=== PATIENT | female | born 1945 | race Asian ===

== ENCOUNTER 2016-05-29 07:08 | Emergency (ER) | payer MEDICARE, OTHER ==
[2016-05-29 07:18] VITALS: BP 164/81
--- NOTE | 2016-05-29 07:41 | ED Physician Documentation ---
PD HPI LOWER EXT INJURY - Stated complaint Stated Complaint: FT PX - Chief complaint Chief Complaint: Ext Problem - History obtained from History obtained from: Patient - History of Present Illness PD HPI LOW EXT INJURY LOCATION: Right, Foot (base) Type of injury: Other (she was walking more last week and initially thought her bunion was irritated, but pain has gotten significant). No: Fall, Twist Timing - onset: How many days ago (1-2 days of paina nd redness at base of great toe) Timing - duration: Days Timing - details: Gradual onset, Still present Worsened by: Moving, Palpating Associated symptoms: Swelling, Discolored (red). No: Weakness, Numbness Similar symptoms before: Has not had sx before Review of Systems Constitutional: denies: Fever, Chills Skin: denies: Abrasion (s), Laceration (s) Neurologic: denies: Focal weakness, Numbness PD PAST MEDICAL HISTORY - Past Medical History Cardiovascular: Hypertension, Atrial fibrillation Respiratory: Shortness of breath Endocrine/Autoimmune: Type 1 diabetes GI: GERD, Diverticulitis : None Psych: None Derm: None - Past Surgical History Past Surgical History: Yes General: Colonoscopy Ortho: Other - Present Medications Home Medications: Ambulatory Orders Medication Instructions Recorded Confirmed Atorvastatin Calcium 20 mg PO DAILY 11/18/15 05/29/16 Dabigatran Etexilate Mesylate 150 mg PO BID 11/18/15 05/29/16 [Pradaxa] Insulin Glargine,Hum.rec.anlog 18 units SQ DAILY PM 11/18/15 05/29/16 [Lantus] Liraglutide [Victoza 2-Jones] 18 units SQ DAILY 11/18/15 05/29/16 diltiaZEM [Cardizem] 190 mg PO DAILY 11/18/15 05/29/16 Losartan [Cozaar] 100 mg PO DAILY 01/10/16 05/29/16 metFORMIN [Glucophage] 500 mg PO BIDWM 01/10/16 05/29/16 Cetirizine [ZyrTEC] 1 tab PO .FREQ 01/18/16 05/29/16 Cephalexin [Keflex] 500 mg PO QID #24 capsule 05/29/16 Hydrocodone/Acetaminophen [Jackson 1 each PO Q6H PRN #20 tablet 05/29/16 5-325 Tablet] Naproxen [Naprosyn] 500 mg PO BID #15 tablet 05/29/16 - Allergies Allergies/Adverse Reactions: Allergies Allergy/AdvReac Type Severity Reaction Status Date / Time No Known Drug Allergies Allergy Verified 05/29/16 07:18 - Social History Does the pt smoke?: No Smoking Status: Current every day smoker Does the pt drink ETOH?: No Does the pt have substance abuse?: No - Immunizations Immunizations are current?: Yes - POLST Patient has POLST: No PD ED PE NORMAL - Vitals Vital signs reviewed: Yes - General General: Alert and oriented X 3, Well developed/nourished - Derm Derm: Warm and dry, Other (1st MT dorsal and medial with redness and marked tenderness. Slight red streak proximal to the ) - Extremities Extremities: Other (tender at base of great toe) - Neuro Neuro: No motor deficit, No sensory deficit Results - Vitals Vitals: Vital Signs - 24 hr 05/29/16 05/29/16 07:14 07:19 Temperature 36.6 C Heart Rate 77 Respiratory 16 Rate Blood Pressure 164/81 H O2 Saturation 97 Oxygen O2 Source Room air PD MEDICAL DECISION MAKING - ED course Complexity details: considered differential (seems most likely gout and there is not enough swelling/effusion of the joint to predict being able to get fluid out. However there is a hint of a red streak going to dorsum of foot, concerning for infection instead. No skin breaks nor lesions as intro site, but still will cover for infection too for now. Unfortunately she is on blood thinner and also is diabetic. ), d/w patient, d/w family () Departure - Departure Disposition: 01 Home, Self Care Clinical Impression: Great toe pain Qualifiers: Laterality: right Qualified Code(s): M79.674 - Pain in right toe(s) Condition: Stable Record reviewed to determine appropriate education?: Yes Instructions: ED Arthritis Gout, ED Infec Skin Cellulitis Follow-Up: Arcadio Hou MD [Primary Care Provider] - Prescriptions: Cephalexin [Keflex] 500 mg PO QID #24 capsule Naproxen [Naprosyn] 500 mg PO BID #15 tablet Hydrocodone/Acetaminophen [Jackson 5-325 Tablet] 1 each PO Q6H PRN #20 tablet PRN Reason: Pain Comments: This looks like gout, so an ANti-inflammatory with help with this, and we will interfere with your conditions/medications either way we go: NSAIDs will interfere with the blood thinner and steroids will interfere with your diabetes. So trying a little of each. Short term use of an NSAID will be okay with the blood thinner and some use of steroid will bump your sugars for couple of days. Also use Tylenol or hydrocodone for pain as needed. Keflex as directed due to concern for infection instead. Discharge Date/Time: 05/29/16 08:23
[2016-05-29] MEDS ORDERED: HYDROcod/ACETAM 5/325 MG TABLET ONE (08:02)
[2016-05-29] MEDS ORDERED: NAPROXEN 250 MG TABLET PO ONE (08:03)
[2016-05-29] MEDS ORDERED: DEXAMETHASONE 10 MG/ML VIAL ONE (08:03)
[2016-05-29] MEDS ORDERED: CEPHALEXIN 250 MG CAPSULE PO ONE (08:03)
[2016-05-29] MEDS ORDERED: CHERRY SYRUP 10 ML UDC PO ONE (08:03)
[2016-05-29] MEDS: DEXAMETHASONE 10 MG/ML VIAL PO STA (08:08)
[2016-05-29] MEDS: NAPROXEN 250 MG TABLET PO STA (08:08)
[2016-05-29] MEDS: HYDROcod/ACETAM 5/325 MG TABLET PO STA (08:09)
[2016-05-29] MEDS: CEPHALEXIN 250 MG CAPSULE PO STA (08:09)
== END 2016-05-29 08:23 | disposition home or self-care (01) ==
LOC: ED 07:08
DX: M79.674 Pain in right toe(s) (principal); I10 Essential (primary) hypertension; I48.91 Unspecified atrial fibrillation; E10.9 Type 1 diabetes mellitus without complications; Z79.4 Long term (current) use of insulin; K21.9 Gastro-esophageal reflux disease without esophagitis; F17.200 Nicotine dependence, unspecified, uncomplicated
CPT/HCPCS: 99283

== ENCOUNTER 2016-08-28 11:07 | Outpatient (CLI) | payer MEDICARE, OTHER ==
--- NOTE | 2016-08-30 16:55 | Mammography Report ---
DIGITAL SCREENING MAMMOGRAM: 08/28/2016 CLINICAL INDICATION: A 71-year-old, for screening. COMPARISON: 08/2006. TECHNIQUE: Routine CC and MLO projections were obtained of the breasts. FINDINGS: The breasts again demonstrate scattered fibroglandular densities bilaterally. Asymmetric p arenchyma in the right upper inner quadrant is stable. No suspicious masses, clustered microcalcifica tions, or regions of architectural distortion are identified. IMPRESSION: BENIGN FINDINGS. RECOMMENDATION: ROUTINE ANNUAL SCREENING UNLESS OTHERWISE CLINICALLY INDICATED. BIRADS CATEGORY 2-BENIGN FINDINGS. STANDARD QUALIFYING STATEMENTS 1. This examination was reviewed with the aid of Computer-Aided Detection (CAD). 2. A negative or benign imaging report should not delay biopsy if clinically suspicious findings are present. Consider surgical consultation if warranted. More than 5% of cancers are not identified by i maging. 3. Dense breasts may obscure an underlying neoplasm. JOB #: [id number] EXT JOB #:[id number]
== END 2016-08-28 11:08 | disposition home or self-care (01) ==
LOC: DI 11:07
PROVIDERS: ATTEND Family Medicine
DX: Z12.31 Encounter for screening mammogram for malignant neoplasm of breast (principal)
CPT/HCPCS: 77067

== ENCOUNTER 2018-01-25 08:50 | Outpatient (CLI) | payer MEDICARE, OTHER | END 2018-01-25 08:51 | disposition home or self-care (01) | LOC: NS 08:50 | PROVIDERS: ATTEND Family Medicine | DX: Z71.3 Dietary counseling and surveillance (principal); E11.9 Type 2 diabetes mellitus without complications; E78.5 Hyperlipidemia, unspecified; I10 Essential (primary) hypertension | CPT/HCPCS: 97802 ==

== ENCOUNTER 2018-03-16 11:59 | Emergency (ER) | payer MEDICARE, OTHER ==
[2018-03-16 12:06] VITALS: BP 151/88
--- NOTE | 2018-03-16 13:04 | ED Physician Documentation ---
PD HPI HEENT - Stated complaint Stated Complaint: TOOTH PX - Chief complaint Chief Complaint: Heent - History obtained from History obtained from: Patient - History of Present Illness Timing - onset: How many days ago (2-3) Timing - duration: Days (2-3) Timing - details: Gradual onset, Still present Location: Tooth (left upper) Associated symptoms: Facial swelling. No: Fever, Unable to swallow, Swollen nodes Similar symptoms before: Has not had sx before Recently seen: Not recently seen Review of Systems Constitutional: denies: Fever, Chills, Myalgias Nose: denies: Rhinorrhea / runny nose, Congestion Throat: reports: Dental pain / toothache. denies: Sore throat Respiratory: denies: Cough PD PAST MEDICAL HISTORY - Past Medical History Cardiovascular: Hypertension, Atrial fibrillation Respiratory: Shortness of breath Endocrine/Autoimmune: Type 1 diabetes GI: GERD, Diverticulitis : None Psych: None Derm: None - Past Surgical History Past Surgical History: Yes General: Colonoscopy Ortho: Other - Present Medications Home Medications: Ambulatory Orders Medication Instructions Recorded Confirmed Dabigatran Etexilate Mesylate 150 mg PO BID 11/18/15 03/16/18 [Pradaxa] Insulin Glargine,Hum.rec.anlog 18 units SQ DAILY PM 11/18/15 03/16/18 [Lantus] RX: diltiaZEM [Cardizem] 190 mg PO DAILY 11/18/15 03/16/18 Losartan [Cozaar] 100 mg PO DAILY 01/10/16 03/16/18 metFORMIN [Glucophage] 500 mg PO BIDWM 01/10/16 03/16/18 Cetirizine [ZyrTEC] 1 tab PO .FREQ 01/18/16 03/16/18 Cephalexin [Keflex] 500 mg PO Q6H #28 capsule 03/16/18 Chlorhexidine Gluconate [Peridex] 5 ml PO TID #118 mouthwash 03/16/18 - Allergies Allergies/Adverse Reactions: Allergies Allergy/AdvReac Type Severity Reaction Status Date / Time No Known Drug Allergies Allergy Verified 03/16/18 12:06 - Social History Does the pt smoke?: No Smoking Status: Never smoker Does the pt drink ETOH?: No Does the pt have substance abuse?: No - Immunizations Immunizations are current?: Yes - POLST Patient has POLST: No PD ED PE NORMAL - Vitals Vital signs reviewed: Yes - General General: Alert and oriented X 3, No acute distress, Well developed/nourished, Other (left cheek/facial mild swelling, slight warmth. Minimally red. ) - HEENT HEENT: EOMI (without pain), Ears normal, Moist mucous membranes, Pharynx benign. No: Dentition benign (cavity/eroded tooth left upper with swelling of the gum. No noted fluctuance. There is swelling without induration of the left cheek. No sinus tenderness to percussion. ) - Neck Neck: Supple, no meningeal sign, No adenopathy - Cardiac Cardiac: RRR, No murmur - Respiratory Respiratory: Clear bilaterally - Derm Derm: Normal color, Warm and dry Results - Vitals Vitals: Vital Signs - 24 hr 03/16/18 12:04 Temperature 36.2 C L Heart Rate 81 Respiratory 14 Rate Blood Pressure 151/88 H O2 Saturation 98 Oxygen O2 Source Room air PD MEDICAL DECISION MAKING - ED course Complexity details: considered differential (tooth pain and gum swelling with some swelling left cheek, but no feeling of the abscess extended to there. ), d/w patient Departure - Departure Disposition: Home, Self Care Clinical Impression: Infected dental caries Condition: Stable Record reviewed to determine appropriate education?: Yes Instructions: ED Dental Abscess Facial Cellulitis Follow-Up: Gill Grissom MD [Primary Care Provider] - Prescriptions: Cephalexin [Keflex] 500 mg PO Q6H #28 capsule Chlorhexidine Gluconate [Peridex] 5 ml PO TID #118 mouthwash Comments: Drink lots of fluids. Use the antiseptic mouth rinse 3 times a day and particularly swishing around the area of the infection. Cephalexin antibiotic as directed for the next week. Call your dentist Sunday or Sunday for a follow-up appointment for more definitive care of the tooth. Recheck if not improving over the next few days. Tylenol if needed for pains. Discharge Date/Time: 03/16/18 13:53
[2018-03-16] MEDS ORDERED: ACETAMINOPHEN 325 MG TABLET PO STA (13:28)
[2018-03-16] MEDS ORDERED: cephALEXin 250 MG CAPSULE PO STA (13:28)
== END 2018-03-16 13:53 | disposition home or self-care (01) ==
LOC: ED 11:59
DX: K02.9 Dental caries, unspecified (principal); K04.7 Periapical abscess without sinus; I10 Essential (primary) hypertension; E10.9 Type 1 diabetes mellitus without complications
CPT/HCPCS: 99283; A9270

== ENCOUNTER 2018-08-15 11:33 | Outpatient (CLI) | payer MEDICARE, OTHER ==
--- NOTE | 2018-08-16 09:19 | XRAY Report ---
Reason: HAND PAIN,RIGHT Procedure Date: 08/15/2018 Accession Number: [id number] / [id number] Procedure: WCP - Hand 3 View RT CPT Code: FULL RESULT: EXAM: RIGHT HAND RADIOGRAPHY EXAM DATE: 08/15/2018 11:47 AM. CLINICAL HISTORY: Right hand pain. Third and fourth digit pain. No known injury. COMPARISON: None. TECHNIQUE: 3 views. FINDINGS: Bones: Normal. No fractures or bone lesions. Joints: Mild to moderate thumb IP joint degenerative disease. Mild degenerative disease evident involving other IP joints, greatest at the index finger DIP joint. No subluxations. Soft Tissues: Normal. No soft tissue swelling. IMPRESSION: 1. No acute abnormality. 2. Degenerative disease, as above. RADIA
== END 2018-08-15 11:34 | disposition home or self-care (01) ==
LOC: DI.WCP 11:33
PROVIDERS: ATTEND Family Medicine
DX: M19.041 Primary osteoarthritis, right hand (principal)

== ENCOUNTER 2019-01-31 08:59 | Outpatient (CLI) | payer MEDICARE, OTHER ==
--- NOTE | 2019-02-01 13:02 | XRAY Report ---
Reason: CHRONIC COUGH Procedure Date: 01/31/2019 Accession Number: [id number] / [id number] Procedure: WCP - Chest 2 View X-Ray CPT Code: 03777 Final Report FULL RESULT: EXAM: CHEST RADIOGRAPHY EXAM DATE: 01/31/2019 08:59 AM. CLINICAL HISTORY: Chronic dry cough. COMPARISON: ABDOMEN ACUTE 01/18/2016 2:59 PM. TECHNIQUE: 2 views. FINDINGS: Lungs/Pleura: No focal opacities evident. No pleural effusion. No pneumothorax. Normal volumes. Mediastinum: Large heart. Calcified aortic arch. Other: No fracture identified. IMPRESSION: Cardiomegaly without CHF or acute pulmonary abnormality. RADIA
== END 2019-01-31 23:59 | disposition home or self-care (01) ==
LOC: DI.WCP 08:59
PROVIDERS: ATTEND Family Medicine
DX: R05 Cough (principal); I51.7 Cardiomegaly
CPT/HCPCS: 71046

== ENCOUNTER 2019-02-28 07:37 | Outpatient (CLI) | payer MEDICARE, OTHER ==
--- NOTE | 2019-02-28 14:20 | Ultrasound Report ---
Reason: CLAUDICATION INTERMITTENT Procedure Date: 02/28/2019 Accession Number: [id number] / [id number] Procedure: US - Duplex Lwr Ext Arterial Bilat CPT Code: Final Report FULL RESULT: EXAM: BILATERAL LOWER EXTREMITY ARTERIAL DOPPLER ULTRASOUND EXAM DATE: 02/28/2019 09:07 AM. CLINICAL HISTORY: Claudication intermittent. COMPARISON: None. TECHNIQUE: Real-time sonographic vascular imaging was performed by the manager corporate strategy, utilizing color-flow, Doppler flow, and spectral analysis. Multiple inside sales account representative static images were saved for review. FINDINGS: Visually, grayscale images demonstrate diffuse atherosclerosis not occupying greater than 50% of the lumen in both right and left common femoral artery, right and left SFA bilaterally below the knee. Brisk arterial upstrokes are preserved by spectral Doppler throughout with patency by color Doppler in all sampled vessels with peak systolic velocities in centimeters per second and waveforms as described below. RIGHT: SAUSAGE INSPECTOR: 54.0 cm/sec. Biphasic waveform. SFA Proximal: 54.7 cm/sec. Biphasic waveform. SFA Mid: 51.9 cm/sec. Biphasic waveform. SFA Distal: 43.0 cm/sec. Biphasic waveform. PFA: 39.6 cm/sec, monophasic waveform. POP: 38.7 cm/sec. Biphasic waveform. LEAH: 34.7 cm/sec. Biphasic waveform. ENAMELER: 35.9 cm/sec. Biphasic Waveform. PER: 20.8 cm/sec. Biphasic Waveform. DPA: 31.2 cm/sec. Biphasic Waveform. LEFT: SAUSAGE INSPECTOR: 135.2 cm/sec. Biphasic waveform. SFA Proximal: 117.6 cm/sec. Biphasic waveform. SFA Mid: 87.1 cm/sec. Biphasic waveform. SFA Distal: 60.5 cm/sec. Biphasic waveform. PFA: 75.6 cm/sec. Biphasic Waveform. POP: 51.2 cm/sec. Biphasic waveform. LEAH: 67.4 cm/sec. Biphasic waveform. ENAMELER: 68.8 cm/sec. Biphasic waveform. PER: 39.2 Cm/sec. Biphasic Waveform. DPA: 49.2 cm/sec. Biphasic waveform. IMPRESSION: Diffuse atherosclerotic disease without suggestion of a focal high-grade stenosis or occlusion by ultrasound. RADIA
== END 2019-02-28 07:38 | disposition home or self-care (01) ==
LOC: DI 07:37
PROVIDERS: ATTEND Family Medicine
DX: I73.9 Peripheral vascular disease, unspecified (principal)
CPT/HCPCS: 93925

== ENCOUNTER 2020-02-05 10:01 | Outpatient (CLI) | payer MEDICARE, OTHER ==
--- NOTE | 2020-02-05 11:59 | XRAY Report ---
PROCEDURE: Lumbar Spine 2 View INDICATIONS: CHRONIC LOW BACK PAIN TECHNIQUE: 2 views of the lumbar spine were acquired. COMPARISON: CT of abdomen and pelvis dated 11/18/2015. FINDINGS: Bones: 5 [id number] vertebrae are present. There is normal bony alignment. Degenerative endpla te changes and bilateral facet arthrosis at L3-4 through L5-S1 levels are seen. No vertebral body com pression fractures. No suspicious bony lesions. Soft tissues: Overlying bowel gas pattern is normal. Vascular calcifications in the abdominal aorta and bilateral iliac arteries are seen. 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 No acute compression fracture or spon dylolisthesis. Reviewed by: Sami Avila MD on 02/05/2020 10:58 AM [facility] Approved by: Sami Avila MD on 02/05/2020 10:58 AM [facility] Station ID: [id number]
--- NOTE | 2020-02-05 12:03 | XRAY Report ---
PROCEDURE: Hip 1 View RT INDICATIONS: RIGHT HIP PAIN TECHNIQUE: 2 views of the hip were acquired. COMPARISON: None FINDINGS: Bones: No fractures or dislocations. No suspicious bony lesions. Mild bilateral hip joint osteoarth ritic changes are seen. No evidence of avascular necrosis of femoral head. The visualized pelvic ring appears intact. Soft tissues: No suspicious soft tissue calcifications or masses. IMPRESSION: No hip fracture or dislocation. Mild symmetric appearing bilateral hip joint osteoarthritis. No evide nce of avascular necrosis. Reviewed by: Sami Avila MD on 02/05/2020 11:02 AM [facility] Approved by: Sami Avila MD on 02/05/2020 11:02 AM [facility] Station ID: [id number]
== END 2020-02-05 23:59 | disposition home or self-care (01) ==
LOC: DI.WCP 10:01
PROVIDERS: ATTEND Physician Assistant Medical
DX: M47.816 Spondylosis without myelopathy or radiculopathy, lumbar region (principal); M16.0 Bilateral primary osteoarthritis of hip

== ENCOUNTER 2020-12-02 13:39 | Outpatient (CLI) | payer MEDICARE, OTHER ==
[2020-12-02 17:59] LABS: BASOPHILS # (AUTO) 0.1 10^3/uL (0.0-0.1); BASOPHILS % (AUTO) 1.2 %; EOSINOPHILS # (AUTO) 0.7 10^3/uL (0.0-0.7); EOSINOPHILS % (AUTO) 6.2 %; HGB - HEMOGLOBIN 15.5 g/dL (12.0-16.0); LYMPHOCYTES # (AUTO) 3.8 10^3/uL (1.5-3.5); LYMPHOCYTES % (AUTO) 36.6 %; MEAN CORPUSCULAR HEMOGLOBIN 30.1 pg (27.0-31.0); MEAN CORPUSCULAR HGB CONC 32.3 g/dL (32.0-36.0); MEAN CORPUSCULAR VOLUME 93.2 fL (81.0-99.0); MEAN PLATELET VOLUME 11.2 fL (7.9-10.8); MONOCYTES # (AUTO) 0.8 10^3/uL (0.0-1.0); MONOCYTES % (AUTO) 7.7 %; PLT - PLATELET COUNT 214 10^3/uL (130-450); RED BLOOD COUNT 5.15 10^6/uL (4.20-5.40); RED CELL DISTRIBUTION WIDTH 14.3 % (12.0-15.0); WHITE BLOOD COUNT 10.5 x10^3/uL (4.8-10.8)
[2020-12-02 18:23] LABS: ALBUMIN 4.2 g/dL (3.2-5.5); ALBUMIN/GLOBULIN RATIO 1.2 (1.0-2.2); ALKALINE PHOSPHATASE 68 IU/L (42-121); ALT ALANINE AMINOTRANSFERASE 17 IU/L (10-60); AST ASPARTATE AMINOTRANSFERASE 20 IU/L (10-42); BILIRUBIN,TOTAL 0.6 mg/dL (0.2-1.0); BUN - BLOOD UREA NITROGEN 22 mg/dL (6-20); CALCIUM 10.3 mg/dL (8.5-10.3); CARBON DIOXIDE - CO2 25 mmol/L (21-32); CHLORIDE 98 mmol/L (101-111); CHOL/HDL RATIO 2.4 (<4.4); CHOLESTEROL 121 mg/dL; CREATININE 0.6 mg/dL (0.4-1.0); GFR - MDRD 98 (>89); GLUCOSE 288 mg/dL (70-100); HDL CHOLESTEROL 50 mg/dL; LDL CHOLESTEROL,CALCULATED 39 mg/dL; LDL/HDL RATIO 0.8 (<4.4); POTASSIUM 4.2 mmol/L (3.5-5.0); SODIUM 136 mmol/L (135-145); TOTAL PROTEIN 7.8 g/dL (6.7-8.2); TRIGLYCERIDES 162 mg/dL; VLDL CHOLESTEROL 32 mg/dL
[2020-12-02 18:25] LABS: THYROID STIMULATING HORMONE 1.7 uIU/mL (0.34-5.60)
[2020-12-02 20:29] LABS: ESTIMATED AVERAGE GLUCOSE 275 mg/dL (70-100); HEMOGLOBIN A1c% 11.2 % (4.27-6.07)
== END 2020-12-02 23:59 | disposition home or self-care (01) ==
LOC: LAB.WCP 13:39
PROVIDERS: ATTEND Family Medicine
DX: E11.8 Type 2 diabetes mellitus with unspecified complications (principal)
CPT/HCPCS: 36415; 80053; 80061; 83036; 83721; 84443; 85025

== ENCOUNTER 2021-11-03 08:00 | Outpatient (CLI) | payer MEDICARE, OTHER ==
--- NOTE | 2021-11-04 08:05 | Mammography Report ---
BILATERAL DIGITAL SCREENING MAMMOGRAM 3D/2D: 11/03/2021 CLINICAL: Routine screening. Comparison is made to exam dated: 08/28/2016 mammogram - [facility]. There are scattered areas of fibroglandular density in both breasts (category b / 25%-50% glandular t issue). No significant masses, calcifications, or other findings are seen in either breast. There has been no significant interval change. IMPRESSION: NEGATIVE There is no mammographic evidence of malignancy. A 1 year screening mammogram is recommended. Based on the Tyrer Cuzick model (a risk assessment model) the patients lifetime risk is 2.6% and her 10 year risk is 2.4%. According to the ACR, ACS, and NCCN guidelines, an annual breast MRI exam evon g with mammogram is recommended if the patients lifetime risk is 20% or greater. This exam was interpreted at Station ID: [id number]. NOTE: For mammograms, a report in lay terms will be sent to the patient. Approximately 15% of breast malignancies will not be visualized mammographically. In the management of a palpable breast mass, a negative mammogram must not discourage biopsy of a clinically suspicious lesion. Electronically Signed By: Baron Vaughn M.D. slc/penrad:11/03/2021 13:36:06 ACR BI-RADS Category 1: Negative 3341F PARENCHYMAL PATTERN: (A) - The breast(s) demonstrate(s) scattered fibroglandular densities. BI-RADS CATEGORY: (1) - 1 RECOMMENDATION: (ANNUAL) - Recommend routine annual screening mammography. [id number] 1 year screening LATERALITY: (B)
== END 2021-11-03 23:59 | disposition home or self-care (01) ==
LOC: DI 08:00
PROVIDERS: ATTEND Physician Assistant
DX: Z12.31 Encounter for screening mammogram for malignant neoplasm of breast (principal)

== ENCOUNTER 2021-11-03 10:44 | Outpatient (CLI) | payer MEDICARE, OTHER ==
--- NOTE | 2021-11-03 17:42 | DEXA Report ---
PROCEDURE: Dexa Spine and/or Hip INDICATIONS: POST MENOPAUSAL TECHNIQUE: Dual energy x-ray absorptiometry (DXA) was performed on a [employer]. Regions measur ed are the AP Spine, femoral neck, and if needed forearm. COMPARISON: None. FINDINGS: Lumbar Spine: Bone Mineral Density 0.951 g/cm/cm,T score -1.9, moderate osteopenia Left Hip: Bone Mineral Density 0.770 g/cm/cm,T score -1.9, moderate osteopenia Left Femoral Neck: Bone Mineral Density 0.758 g/cm/cm, T score -2.0, moderate to severe osteopenia (T score greater or equal to -1.0: NORMAL) (T score from -1.1 to -2.4: OSTEOPENIA) (T score less than or equal to -2.5 to: OSTEOPOROSIS) Impression: Moderate to severe osteopenia most notable in the femoral neck. Patients with diagnosis of osteoporosis or osteopenia should have regular bone mineral density assess ment. For those eligible for Medicare, routine testing is allowed once every 2 years. Testing frequ ency can be increased for patients who have rapidly progressing disease or for those who are receivin g medical therapy to restore bone mass. Reviewed by: Nilda Rivas MD on 11/03/2021 5:40 PM PDT Approved by: Nilda Rivas MD on 11/03/2021 5:40 PM PDT Station ID: [id number]
== END 2021-11-03 10:45 | disposition home or self-care (01) ==
LOC: DI 10:44
PROVIDERS: ATTEND Physician Assistant
DX: Z78.0 Asymptomatic menopausal state (principal); M85.89 Other specified disorders of bone density and structure, multiple sites

== ENCOUNTER 2022-04-04 11:14 | Outpatient (CLI) | payer MEDICARE, OTHER ==
--- NOTE | 2022-04-04 15:44 | XRAY Report ---
PROCEDURE: Knee 2 View LT INDICATIONS: KNEE JOINT PAIN,LEFT TECHNIQUE: 2 views of the left knee(s) were acquired. COMPARISON: None. FINDINGS: Bones: No fractures or dislocations. No suspicious bony lesions. Moderate left knee tricompartmenta l osteoarthritic degenerative change. Soft tissues: No joint effusion. No suspicious soft tissue calcifications. IMPRESSION: Moderate tricompartmental osteoarthritis. Reviewed by: Indiana Grimm MD, PhD on 04/04/2022 3:43 PM PST Approved by: Indiana Grimm MD, PhD on 04/04/2022 3:43 PM PST Station ID: [id number]
== END 2022-04-04 11:15 | disposition home or self-care (01) ==
LOC: DI 11:14
PROVIDERS: ATTEND Physician Assistant
DX: M17.12 Unilateral primary osteoarthritis, left knee (principal)

== ENCOUNTER 2022-04-27 09:34 | Outpatient (CLI) | payer MEDICARE, OTHER ==
--- NOTE | 2022-04-27 15:32 | XRAY Report ---
PROCEDURE: Knee 3 View LT INDICATIONS: LEFT KNEE PAIN TECHNIQUE: 3 views of the left knee(s) were acquired. COMPARISON: X-ray knee 04/04/2022 FINDINGS: Bones: No fractures or dislocations. No suspicious bony lesions. Unchanged appearance of moderate medial compartment arthritic narrowing. No erosions. Soft tissues: No joint effusion. No suspicious soft tissue calcifications. IMPRESSION: Stable interval exam demonstrating prominent medial compartment arthritic change. Reviewed by: Nilda Rivas MD on 04/27/2022 3:31 PM PST Approved by: Nilda Rivas MD on 04/27/2022 3:31 PM PST Station ID: [id number]
== END 2022-04-27 09:36 | disposition home or self-care (01) ==
LOC: DI.WOS 09:34
PROVIDERS: ATTEND Physician Assistant Surgical
DX: M17.12 Unilateral primary osteoarthritis, left knee (principal)

== ENCOUNTER 2022-10-19 10:55 | Outpatient (CLI) | payer MEDICARE, OTHER ==
--- NOTE | 2022-10-20 23:18 | CT Report ---
PROCEDURE: Low Dose Lung Cancer Screen INDICATIONS: SMOKER TECHNIQUE: A CT scan of the chest was performed. Intravenous contrast media was not administered. Images were re corded and evaluated at appropriate window settings. Reformats: axial MIP of the chest, coronal and s agittal. For radiation dose reduction, the following was used: automated exposure control, adjustment of mA and/or kV according to patient size. COMPARISON: None. FINDINGS: Image quality: Excellent. Prior cancer history: Unsure. Lungs and pleura: No pleural effusions. No pneumothorax. Diffusely scattered patchy ill-defined grou ndglass opacities and groundglass nodules seen in the bilateral hemithoraces. These appear mostly con fluent in the more dependent portions of the lung bilaterally. Suggestion of mild septal thickening. No definite focal nodules seen. No pulmonary mass lesion. Mild perihilar airway thickening bilaterall y. Mediastinum: Heart size is enlarged. No pericardial effusion. Main pulmonary artery is enlarged. Bord jeison ectasia of the thoracic aorta. Dense three-vessel coronary artery calcifications. No mediastin al adenopathy by size criteria. Chest wall and lower neck: Thyroid is unremarkable. No axillary or supraclavicular adenopathy by size . Bones: No aggressive osseous abnormality. Upper Abdomen: Small hiatal hernia. Colonic diverticulosis without acute diverticulitis. Status post cholecystectomy. Normal appendix. IMPRESSION: Cardiomegaly with diffuse bilateral groundglass opacities and groundglass nodules and smo oth septal thickening possibly related to an infectious/inflammatory process versus mild pulmonary ed brandi. No definite pulmonary nodules identified. No focal consolidations. Moderate atherosclerotic vascular disease. Enlargement of the main pulmonary artery without evidence for acute right-sided heart strain likely r elated to sequela of chronic pulmonary arterial hypertension. Other chronic findings as above. Lung RAD: 3S. Probably benign. Recommendation: Recommend follow-up chest CT in 3-6 months to document stability or resolution of sca ttered groundglass opacities. Non-Lung Significant Findings: Coronary Arterial Calcification - Moderate or Severe. Reviewed by: Austin Perez MD on 10/20/2022 11:17 PM PDT Approved by: Austin Perez MD on 10/20/2022 11:17 PM PDT Station ID: [id number]
== END 2022-10-19 10:56 | disposition home or self-care (01) ==
LOC: DI 10:55
PROVIDERS: ATTEND Physician Assistant
DX: Z12.2 Encounter for screening for malignant neoplasm of respiratory organs (principal); F17.210 Nicotine dependence, cigarettes, uncomplicated; I51.7 Cardiomegaly; R91.8 Other nonspecific abnormal finding of lung field; I25.10 Atherosclerotic heart disease of native coronary artery without angina pectoris; I28.8 Other diseases of pulmonary vessels

== ENCOUNTER 2022-10-26 16:17 | Outpatient (CLI) | payer MEDICARE, OTHER ==
[2022-10-26] MEDS ORDERED: ALBUTEROL 1 PUFF INH STA (17:41)
== END 2022-10-26 16:18 | disposition home or self-care (01) ==
LOC: RT 16:17
PROVIDERS: ATTEND Physician Assistant
DX: D75.1 Secondary polycythemia (principal); F17.200 Nicotine dependence, unspecified, uncomplicated
CPT/HCPCS: 94060

== ENCOUNTER 2023-01-24 12:25 | Outpatient (CLI) | payer MEDICARE, OTHER | END 2023-01-24 12:26 | disposition home or self-care (01) | LOC: DI 12:25 | PROVIDERS: ATTEND Physician Assistant | DX: I48.0 Paroxysmal atrial fibrillation (principal); I10 Essential (primary) hypertension; I08.1 Rheumatic disorders of both mitral and tricuspid valves | CPT/HCPCS: 93306 ==

== ENCOUNTER 2023-03-02 10:22 | Outpatient (CLI) | payer MEDICARE, OTHER ==
--- NOTE | 2023-03-02 13:04 | CT Report ---
PROCEDURE: Chest WO INDICATIONS: ABN CHEST CT, COPD TECHNIQUE: A CT scan of the chest was performed. Intravenous contrast media was not administered. Images were re corded and evaluated at appropriate window settings. Reformats: axial MIP of the chest, coronal and s agittal. For radiation dose reduction, the following was used: automated exposure control, adjustment of mA and/or kV according to patient size. COMPARISON: CT 10/19/2022 FINDINGS: Image quality: Excellent. Lungs and pleura: No consolidation. No pleural effusions. No pneumothorax. Smooth interstitial thick ening, bronchial thickening and air trapping. Mediastinum: Heart size is enlarged. No pericardial effusion. Enlarged pulmonary artery. No mediastin al adenopathy by size criteria. Three-vessel coronary calcifications. Chest wall and lower neck: Thyroid calcifications. No axillary or supraclavicular adenopathy by size. Bones: No aggressive osseous abnormality. Upper Abdomen: Unremarkable. IMPRESSION: Similar smooth interstitial thickening and bronchial thickening, findings are most consistent with pu lmonary edema. Mosaic attenuation of the lungs, suggestive of diffuse air trapping in the setting of small airways d isease. Cardiomegaly and marked coronary calcifications. Reviewed by: Butch Prieto MD on 03/02/2023 1:03 PM PST Approved by: Butch Prieto MD on 03/02/2023 1:03 PM PST Station ID: [id number]
== END 2023-03-02 10:23 | disposition home or self-care (01) ==
LOC: DI 10:22
PROVIDERS: ATTEND Physician Assistant
DX: R91.8 Other nonspecific abnormal finding of lung field (principal); I25.10 Atherosclerotic heart disease of native coronary artery without angina pectoris; I51.7 Cardiomegaly

== ENCOUNTER 2023-09-04 11:52 | Outpatient (CLI) | payer MEDICARE, OTHER ==
[2023-09-04 18:08] LABS: CALCIUM 10.7 mg/dL (8.5-10.3); POTASSIUM 4.2 mmol/L (3.5-4.5)
[2023-09-04 18:17] LABS: CREATININE,URINE 53.8 mg/dL; MICROALBUM/CREATININE RATIO,UR 57.6 ug/mg (<30.0); MICROALBUMIN,URINE 3.1 mg/dL
[2023-09-04 20:03] LABS: ESTIMATED AVERAGE GLUCOSE 203 mg/dL (70-100); HEMOGLOBIN A1c% 8.7 % (4.27-6.07)
== END 2023-09-04 11:53 | disposition home or self-care (01) ==
LOC: LAB.N 11:52
PROVIDERS: ATTEND Physician Assistant
DX: E11.8 Type 2 diabetes mellitus with unspecified complications (principal)
CPT/HCPCS: 36415; 80048; 82043; 82570; 83036

== ENCOUNTER 2023-10-04 08:00 | Outpatient (CLI) | payer MEDICARE, OTHER ==
[2023-10-04 20:45] LABS: BACTERIAL VAGINOSIS DNA POSITIVE (NEGATIVE); CANDIDA GLABRATA DNA NEGATIVE (NEGATIVE); CANDIDA GROUP DNA POSITIVE (NEGATIVE); CANDIDA KRUSEI DNA NEGATIVE (NEGATIVE); TRICHOMONAS VAGINALIS DNA NEGATIVE (NEGATIVE)
== END 2023-10-04 23:59 | disposition home or self-care (01) ==
LOC: LAB.WCP 08:00
PROVIDERS: ATTEND Physician Assistant
DX: N89.8 Other specified noninflammatory disorders of vagina (principal)
CPT/HCPCS: 81514

== ENCOUNTER 2023-11-17 12:57 | Emergency (ER) | payer MEDICARE, OTHER ==
[2023-11-17 13:13] VITALS: O2SAT 100
--- NOTE | 2023-11-17 13:18 | ED Physician Documentation ---
PD HPI OPHTHO - Stated complaint Stated Complaint: EYES, RED AND ITCHY - Chief complaint Chief Complaint: Heent - Additional information Additional information: 78-year-old female presents emergency department for bilateral eye irritation and itching. Patient says that she has been having this irritation go on now for about a month she says that she does not wake up with any crusty's in her eyes she is able to see without any difficulty she has been trying to apply lubricating drops but she has had little to no relief. The itching has gotten more severe they have not seen their med peds patient does have med peds she does not wear contact lenses. PD PAST MEDICAL HISTORY - Past Medical History Past Medical History: Yes Cardiovascular: Hypertension, High cholesterol, Atrial fibrillation Respiratory: Asthma, Shortness of breath Neuro: Tremors Endocrine/Autoimmune: Type 2 diabetes, HyPERthyroidism GI: GERD, Diverticulitis MAGNETIC LOCATER: None : Nocturia HEENT: None Psych: None Musculoskeletal: Osteoarthritis Derm: None - Past Surgical History Past Surgical History: Yes General: Colonoscopy Ortho: Other - Present Medications Home Medications: Ambulatory Orders Medication Instructions Recorded Confirmed Dabigatran Etexilate Mesylate 150 mg PO BID 11/18/15 11/17/23 [Pradaxa] Insulin Glargine,Hum.rec.anlog 14 - 20 units SQ BID 11/18/15 11/17/23 [Lantus] diltiaZEM [Cardizem] 180 mg PO DAILY 11/18/15 11/17/23 Losartan [Cozaar] 100 mg PO DAILY 01/10/16 11/17/23 metFORMIN [Glucophage] 1,000 mg PO BID 01/10/16 11/17/23 hydroCHLOROthiazide 25 mg PO QDBREAKFAST 01/10/19 11/17/23 [Hydrochlorothiazide] Empagliflozin [Jardiance] 25 mg ORAL DAILY 11/17/23 11/17/23 - Allergies Allergies/Adverse Reactions: Allergies Allergy/AdvReac Type Severity Reaction Status Date / Time No Known Drug Allergies Allergy Verified 11/17/23 13:02 - Social History Does the pt smoke?: No Smoking Status: Never smoker Does the pt drink ETOH?: No Does the pt have substance abuse?: No - Immunizations Immunizations are current?: Yes - POLST Patient has POLST: No PD ED PE NORMAL - Vitals Vital signs reviewed: Yes - General General: Alert and oriented X 3, No acute distress, Well developed/nourished PD ED PE EXPANDED - Eyes Eyes: PERRL, Normal accommodation, Both eyes, Eyelid erythema, No eyelid FB (everted), Injected conj/sclera. No: Eyelid swelling, Exudate Results - Vitals Vitals: Vital Signs - 24 hr 11/17/23 11/17/23 13:03 14:26 Temperature 36 C L 36.5 C Heart Rate 88 82 Respiratory 16 16 Rate Blood Pressure 140/66 H 130/60 O2 Saturation 100 100 Oxygen O2 Source Room air PD Medical Decision Making - ED course ED course: 78-year-old female presents emergency room for bilateral eye irritation and itching. There is no purulent drainage to make me concern for possible viral bacterial conjunctivitis. This has been ongoing now for about a month and her main complaint is the itchy sensation. She was given Zyrtec here in the emergency department and was told that she most likely has allergic conjunctivitis and was told to start taking Zaditor today and which she can picking tech [id number]. They are told to follow-up with her med peds if no alleviation with the Sunday drops and Zyrtec daily. Return precautions given patient is safe for discharge at this time. Departure - Departure Disposition: 01 Home, Self Care Clinical Impression: Allergic conjunctivitis Instructions: Ketotifen eye solution Comments: Thank you for trusting us with your care, we have evaluated you for bilateral ey e itching. You most likely have allergic conjunctivitis. We have given you an antihistamine here in the emergency department and I would recommend taking 1 Zyrtec pill daily as well as adding Zaditor drops to your eyes daily. Please follow-up with your med peds if no improvement of symptoms in a couple days with antihistamine regimen. Please return to the emergency department for any fevers or chills or any vision changes. Forms: PCP List Discharge Date/Time: 11/17/23 14:26
[2023-11-17] MEDS: CETIRIZINE 10 MG TABLET PO STA (13:53)
[2023-11-17 14:36] VITALS: BP 130/60
== END 2023-11-17 14:26 | disposition home or self-care (01) ==
LOC: ED 12:57
DX: H10.13 Acute atopic conjunctivitis, bilateral (principal)
CPT/HCPCS: 99282; 99283; A9270